=== PATIENT | male | born 1945 | race Caucasian/White ===

== ENCOUNTER 2023-03-16 18:30 | Inpatient (IN) | payer MEDICARE, BC ==
[~2023-03-16] VITALS: Ht 175.3 cm; Wt 54.5 kg
[2023-03-16 18:49] VITALS: O2SAT 93
[2023-03-16 19:36] LABS: BASOPHILS # (AUTO) 0.1 K/uL (0.0-0.2); BASOPHILS % (AUTO) 0.7 % (0.0-2.0); EOSINOPHILS # (AUTO) 0.4 K/uL (0.0-0.7); EOSINOPHILS % (AUTO) 4.5 % (0.0-6.0); HEMATOCRIT 43 % (39-51); HEMOGLOBIN 14.1 g/dL (13.5-17.5); LYMPHOCYTES # (AUTO) 1.1 K/uL (0.8-4.8); LYMPHOCYTES % (AUTO) 13.2 % (20.0-44.0); MEAN CORPUSCULAR HEMOGLOBIN 29 PG (26.0-33.0); MEAN CORPUSCULAR HGB CONC 33 g/dl (31.0-36.0); MEAN CORPUSCULAR VOLUME 89 fL (80-96); MONOCYTES # (AUTO) 0.6 K/uL (0.1-1.30); MONOCYTES % (AUTO) 7.5 % (2.0-12.0); NEUTROPHILS % (AUTO) 74.1 % (43.0-81.0); PLATELET COUNT (AUTO) 190 K/uL (150-450); RED BLOOD CELL COUNT(AUTO) 4.89 MIL/uL (4.5-6.0); RED CELL DISTRIBUTION WIDTH 14.4 % (11.5-15.0); WHITE BLOOD COUNT (AUTO) 8.1 K/uL (4.3-11.0)
[2023-03-16] MEDS ORDERED: DOCU250C14 PO (19:36)
[2023-03-16] MEDS ORDERED: BENZ0.5T43 PO (19:36)
[2023-03-16] MEDS ORDERED: EZET10TA16 PO (19:36)
[2023-03-16] MEDS ORDERED: ACET-2605 PO (19:36)
[2023-03-16] MEDS ORDERED: THIA100T74 PO (19:36)
[2023-03-16] MEDS ORDERED: QUET25TA PO (19:36)
[2023-03-16] MEDS ORDERED: MAGN400O6 PO (19:36)
[2023-03-16] MEDS ORDERED: OXCA150T5 PO (19:36)
[2023-03-16] MEDS ORDERED: ATOR40TA PO (19:36)
[2023-03-16] MEDS ORDERED: APIX5TAB PO (19:36)
[2023-03-16] MEDS ORDERED: NA P133E RC (19:36)
[2023-03-16] MEDS ORDERED: FOLI0.8T3 PO (19:36)
[2023-03-16] MEDS ORDERED: ZOLP5TAB2 PO (19:36)
[2023-03-16] MEDS ORDERED: ACET-868 PO (19:36)
[2023-03-16] MEDS ORDERED: FLEC50TA2 PO (19:36)
[2023-03-16 19:57] LABS: SERUM AMMONIA 15 umol/L (11-32)
[2023-03-16 20:05] LABS: AMPHETAMINE, URINE NEGATIVE (NEGATIVE); BARBITURATE, URINE NEGATIVE (NEGATIVE); BENZODIAZEPINE, URINE NEGATIVE (NEGATIVE); CANNABINOID, URINE NEGATIVE (NEGATIVE); COCCAINE, URINE NEGATIVE (NEGATIVE); OPIATE, URINE NEGATIVE (NEGATIVE); PHENCYCLIDINE SCREEN,URINE NEGATIVE (NEGATIVE)
[2023-03-16 20:07] LABS: INR 1.14 (0.91-1.10); PARTIAL THROMBOPLASTIN TIME 39.9 SEC (24.3-34.3)
[2023-03-16 20:08] LABS: APPEARANCE,URINE SLIGHTLY CLOUDY (CLEAR); BILIRUBIN,URINE 1+ (NEGATIVE); BLOOD, URINE 3+ Ery/uL (NEGATIVE); COLOR,URINE YELLOW (YELLOW); KETONES,URINE TRACE mg/dL (NEGATIVE); LEUKOCYTE ESTERASE ,URINE 2+ (NEGATIVE); NITRITE, URINE NEGATIVE (NEGATIVE); PROTEIN,URINE 1+ mg/dl (NEGATIVE); UGLUCOSE NEGATIVE (NEGATIVE)
[2023-03-16 20:12] LABS: ADD URINE CULTURE YES; BACTERIA,URINE 3+ /HPF (None Seen); RBC,URINE 51-80 /HPF (0-2); SQUAMOUS EPITHELIAL CELL,UR 0-2 /HPF (None Seen); TRIPLE PHOSPHATE CRYSTAL,UR Few /HPF (None Seen); WBC,URINE 21-50 /HPF (0-3)
[2023-03-16 20:17] LABS: MAGNESIUM 2.5 mg/dL (1.8-2.4)
[2023-03-16] MEDS ORDERED: CEFTRIAXONE 1GM BAG (ER ONLY) 1 GM/50 ML PIGGYBACK IV ONE (20:30)
[2023-03-16 20:33] LABS: THYROID STIMULATING HORMONE 1.075 uIU/mL (0.358-3.74)
[2023-03-16] MEDS ORDERED: CEFTRIAXONE 1GM BAG (ER ONLY) 50 ML IV ONE (21:04)
[2023-03-16 21:10] LABS: ANISOCYTOSIS 1+; EOSINOPHILS % (MANUAL) 2 % (0-4); LYMPHOCYTES % (MANUAL) 15 % (16-48); MONOCYTES % (MANUAL) 9 % (0-11.0); NEUTROPHILS % (MANUAL) 73 (42-76); PLATELET ESTIMATE ADEQUATE; REACTIVE LYMPHOCYTES 1 % (0-0)
[2023-03-16 21:11] LABS: ALANINE AMINOTRANSFERASE 30 U/L (12-78); ALBUMIN 3.2 g/dL (3.4-5.0); ALCOHOL, BLOOD < 3 mg/dL (0-10); ALKALINE PHOSPHATASE 89 U/L (46-116); ASPARTATE AMINOTRANSFERASE 28 U/L (15-37); BILIRUBIN,DIRECT 0.1 mg/dL (0.0-0.2); BILIRUBIN,TOTAL 0.7 mg/dL (0.2-1.0); CALCIUM, SERUM 9.4 mg/dL (8.5-10.1); CARBON DIOXIDE 27 mmol/L (21-32); CHLORIDE 112 mmol/L (98-107); CREATININE 0.9 mg/dL (0.6-1.3); GLUCOSE 111 mg/dL (74-106); POTASSIUM 4.2 mmol/L (3.5-5.1); SODIUM SERUM 150 mmol/L (136-145); TOTAL PROTEIN, SERUM 7.1 g/dL (6.4-8.2); UREA NITROGEN, BLOOD 38 mg/dL (7-18)
[2023-03-16 21:12] LABS: ACETAMINOPHEN 0 ug/ml (10-30); SALICYLATE < 0.2 mg/dL (2.8-20.0)
[2023-03-16] MEDS ORDERED: IV NS 0.9% 1,000 ML IV SCH (21:30)
[2023-03-16] MEDS ORDERED: ACETAMINOPHEN 325 MG TABLET PO PRN (21:30)
[2023-03-16] MEDS ORDERED: MORPHINE SULFATE INJ 2 MG/ML DISP.SYRIN IV PRN (21:30)
[2023-03-16] MEDS ORDERED: ONDANSETRON HCL/PF 4 MG/2 ML VIAL IVP PRN (21:30)
[2023-03-16] MEDS: QUETIAPINE FUMARATE 25 MG TABLET PO SCH (23:44)
[2023-03-16] MEDS: ATORVASTATIN 40 MG TABLET PO SCH (23:44)
[2023-03-17] MEDS: IV D5/0.45 NACL 1,000 ML IV SCH ×2 (00:09→12:36)
[2023-03-17 06:04] LABS: BASOPHILS % (AUTO) 0.6 % (0.0-2.0); EOSINOPHILS # (AUTO) 0.5 K/uL (0.0-0.7); EOSINOPHILS % (AUTO) 7.2 % (0.0-6.0); HEMATOCRIT 44 % (39-51); HEMOGLOBIN 13.7 g/dL (13.5-17.5); LYMPHOCYTES # (AUTO) 1.8 K/uL (0.8-4.8); LYMPHOCYTES % (AUTO) 25.4 % (20.0-44.0); MEAN CORPUSCULAR HEMOGLOBIN 29 PG (26.0-33.0); MEAN CORPUSCULAR HGB CONC 31 g/dl (31.0-36.0); MEAN CORPUSCULAR VOLUME 92 fL (80-96); MONOCYTES # (AUTO) 0.8 K/uL (0.1-1.30); MONOCYTES % (AUTO) 11.3 % (2.0-12.0); NEUTROPHILS # (AUTO) 3.9 K/uL (1.8-8.9); NEUTROPHILS % (AUTO) 55.5 % (43.0-81.0); PLATELET COUNT (AUTO) 175 K/uL (150-450); RED BLOOD CELL COUNT(AUTO) 4.72 MIL/uL (4.5-6.0); RED CELL DISTRIBUTION WIDTH 15.3 % (11.5-15.0)
[2023-03-17 06:18] LABS: ALANINE AMINOTRANSFERASE 26 U/L (12-78); ALBUMIN 2.4 g/dL (3.4-5.0); ALKALINE PHOSPHATASE 81 U/L (46-116); ASPARTATE AMINOTRANSFERASE 26 U/L (15-37); BILIRUBIN,TOTAL 0.6 mg/dL (0.2-1.0); CALCIUM, SERUM 9.1 mg/dL (8.5-10.1); CARBON DIOXIDE 23 mmol/L (21-32); CHLORIDE 113 mmol/L (98-107); CREATININE 0.8 mg/dL (0.6-1.3); GLUCOSE 115 mg/dL (74-106); MAGNESIUM 2.9 mg/dL (1.8-2.4); PHOSPHORUS 3.1 mg/dL (2.5-4.9); POTASSIUM 4.1 mmol/L (3.5-5.1); SODIUM SERUM 144 mmol/L (136-145); TOTAL PROTEIN, SERUM 6.6 g/dL (6.4-8.2); UREA NITROGEN, BLOOD 38 mg/dL (7-18)
[2023-03-17 08:00] VITALS: BP 139/71; TEMP 97.4; O2SAT 99
[2023-03-17] MEDS ORDERED: HEPARIN SODIUM, PORCINE 5000 UNITS/1 ML VIAL SQ SCH (09:00)
[2023-03-17] MEDS: FLECAINIDE ACETATE (100 MG) 100 MG TABLET PO SCH ×2 (09:00→21:00)
[2023-03-17] MEDS: EZETIMIBE 10 MG TABLET PO SCH (09:00)
[2023-03-17] MEDS: THIAMINE HCL 100 MG TABLET PO SCH (09:00)
[2023-03-17] MEDS ORDERED: APIXABAN 5 MG TABLET PO SCH (09:00)
[2023-03-17] MEDS: DOCUSATE SODIUM 100 MG CAPSULE PO SCH ×2 (09:00→16:15)
[2023-03-17] MEDS: POLYETHYLENE GLYCOL 3350 17 GM POWD.PACK PO SCH (09:00)
[2023-03-17] MEDS: BENZTROPINE MESYLATE (1 MG) 1 MG TABLET PO SCH ×2 (09:00→21:00)
[2023-03-17] MEDS: OXCARBAZEPINE 150 MG TABLET PO SCH ×2 (09:00→21:00)
[2023-03-17 12:00] VITALS: BP 116/95; TEMP 97.7; O2SAT 98
[2023-03-17] MEDS: HEPARIN SODIUM, PORCINE 5000 UNITS/1 ML VIAL SQ SCH ×2 (12:09→21:48)
[2023-03-17 16:00] VITALS: BP 135/68; TEMP 97.9; O2SAT 99
[2023-03-17 20:00] VITALS: BP 143/79; TEMP 97.7; O2SAT 98
[2023-03-17] MEDS: ATORVASTATIN 40 MG TABLET PO SCH (22:00)
[2023-03-17] MEDS: QUETIAPINE FUMARATE 25 MG TABLET PO SCH (22:00)
[2023-03-17] MEDS ORDERED: CEFTRIAXONE 1 G VIAL ONE (22:01)
[2023-03-17] MEDS: CEFTRIAXONE 1 G in IV D5W 50 ML IV SCH (22:09)
[2023-03-18] VITALS: BP 128/84; TEMP 97.6; O2SAT 97
[2023-03-18 04:00] VITALS: BP 121/65; TEMP 97.7; O2SAT 98
[2023-03-18 07:30] VITALS: BP 138/78; TEMP 97.7; O2SAT 100
[2023-03-18] MEDS: BENZTROPINE MESYLATE (1 MG) 1 MG TABLET PO SCH ×2 (08:04→21:00)
[2023-03-18] MEDS: DOCUSATE SODIUM 100 MG CAPSULE PO SCH ×2 (08:04→17:00)
[2023-03-18] MEDS: POLYETHYLENE GLYCOL 3350 17 GM POWD.PACK PO SCH (08:04)
[2023-03-18] MEDS: THIAMINE HCL 100 MG TABLET PO SCH (08:04)
[2023-03-18] MEDS: FLECAINIDE ACETATE (100 MG) 100 MG TABLET PO SCH ×2 (08:04→21:00)
[2023-03-18] MEDS: OXCARBAZEPINE 150 MG TABLET PO SCH ×2 (08:04→21:00)
[2023-03-18] MEDS: EZETIMIBE 10 MG TABLET PO SCH (08:04)
[2023-03-18] MEDS: IV D5W 1,000 ML IV PRN (08:12)
[2023-03-18 08:28] LABS: BASOPHILS % (AUTO) 0.8 % (0.0-2.0); EOSINOPHILS # (AUTO) 0.4 K/uL (0.0-0.7); EOSINOPHILS % (AUTO) 6.4 % (0.0-6.0); HEMATOCRIT 44 % (39-51); HEMOGLOBIN 14.5 g/dL (13.5-17.5); LYMPHOCYTES % (AUTO) 17.2 % (20.0-44.0); MEAN CORPUSCULAR HEMOGLOBIN 29 PG (26.0-33.0); MEAN CORPUSCULAR HGB CONC 33 g/dl (31.0-36.0); MEAN CORPUSCULAR VOLUME 89 fL (80-96); MONOCYTES # (AUTO) 0.6 K/uL (0.1-1.30); NEUTROPHILS # (AUTO) 3.9 K/uL (1.8-8.9); NEUTROPHILS % (AUTO) 65.6 % (43.0-81.0); PLATELET COUNT (AUTO) 189 K/uL (150-450); RED BLOOD CELL COUNT(AUTO) 4.99 MIL/uL (4.5-6.0); RED CELL DISTRIBUTION WIDTH 14.1 % (11.5-15.0); WHITE BLOOD COUNT (AUTO) 5.9 K/uL (4.3-11.0)
[2023-03-18 09:01] LABS: ALANINE AMINOTRANSFERASE 31 U/L (12-78); ALBUMIN 3.1 g/dL (3.4-5.0); ALKALINE PHOSPHATASE 89 U/L (46-116); ASPARTATE AMINOTRANSFERASE 24 U/L (15-37); BILIRUBIN,TOTAL 0.5 mg/dL (0.2-1.0); CALCIUM, SERUM 9.2 mg/dL (8.5-10.1); CARBON DIOXIDE 29 mmol/L (21-32); CHLORIDE 111 mmol/L (98-107); CREATININE 0.9 mg/dL (0.6-1.3); GLUCOSE 110 mg/dL (74-106); MAGNESIUM 2.1 mg/dL (1.8-2.4); POTASSIUM 4.4 mmol/L (3.5-5.1); SODIUM SERUM 148 mmol/L (136-145); UREA NITROGEN, BLOOD 27 mg/dL (7-18)
[2023-03-18] MEDS: HEPARIN SODIUM, PORCINE 5000 UNITS/1 ML VIAL SQ SCH ×2 (09:11→21:58)
[2023-03-18 16:00] VITALS: BP 135/83; TEMP 97.9; O2SAT 96
[2023-03-18] MEDS: CEFTRIAXONE 1 G in IV D5W 50 ML IV SCH (20:35)
[2023-03-18] MEDS: QUETIAPINE FUMARATE 25 MG TABLET PO SCH (22:00)
[2023-03-18] MEDS: ATORVASTATIN 40 MG TABLET PO SCH (22:00)
[2023-03-19 00:40] VITALS: BP 124/106; TEMP 97.7; O2SAT 100
[2023-03-19] MEDS: IV D5W 1,000 ML IV PRN (03:50)
[2023-03-19 07:02] LABS: BASOPHILS % (AUTO) 0.5 % (0.0-2.0); EOSINOPHILS # (AUTO) 0.3 K/uL (0.0-0.7); EOSINOPHILS % (AUTO) 6.2 % (0.0-6.0); HEMATOCRIT 43 % (39-51); HEMOGLOBIN 14.1 g/dL (13.5-17.5); LYMPHOCYTES # (AUTO) 1.2 K/uL (0.8-4.8); MEAN CORPUSCULAR HEMOGLOBIN 29 PG (26.0-33.0); MEAN CORPUSCULAR HGB CONC 33 g/dl (31.0-36.0); MEAN CORPUSCULAR VOLUME 88 fL (80-96); MONOCYTES # (AUTO) 0.5 K/uL (0.1-1.30); MONOCYTES % (AUTO) 9.4 % (2.0-12.0); NEUTROPHILS # (AUTO) 3.2 K/uL (1.8-8.9); NEUTROPHILS % (AUTO) 61.9 % (43.0-81.0); PLATELET COUNT (AUTO) 192 K/uL (150-450); RED BLOOD CELL COUNT(AUTO) 4.88 MIL/uL (4.5-6.0); RED CELL DISTRIBUTION WIDTH 13.7 % (11.5-15.0); WHITE BLOOD COUNT (AUTO) 5.2 K/uL (4.3-11.0)
[2023-03-19 07:09] LABS: MAGNESIUM 2.2 mg/dL (1.8-2.4); PHOSPHORUS 3.1 mg/dL (2.5-4.9)
[2023-03-19 07:30] VITALS: BP 117/86; TEMP 98.2; O2SAT 100
[2023-03-19] MEDS: BENZTROPINE MESYLATE (1 MG) 1 MG TABLET PO SCH ×2 (09:29→22:08)
[2023-03-19] MEDS: DOCUSATE SODIUM 100 MG CAPSULE PO SCH ×2 (09:29→16:58)
[2023-03-19] MEDS: OXCARBAZEPINE 150 MG TABLET PO SCH ×2 (09:29→22:09)
[2023-03-19] MEDS: EZETIMIBE 10 MG TABLET PO SCH (09:29)
[2023-03-19] MEDS: HEPARIN SODIUM, PORCINE 5000 UNITS/1 ML VIAL SQ SCH (09:29)
[2023-03-19] MEDS: THIAMINE HCL 100 MG TABLET PO SCH (09:29)
[2023-03-19] MEDS: POLYETHYLENE GLYCOL 3350 17 GM POWD.PACK PO SCH (09:30)
[2023-03-19] MEDS: FLECAINIDE ACETATE (100 MG) 100 MG TABLET PO SCH ×2 (09:32→22:09)
[2023-03-19] MEDS: Z GUARD REMEDY 4 OZ OINT TP PRN ×2 (10:32→10:33)
[2023-03-19] MEDS: DIVALPROEX SODIUM 125 MG CAP.SPRINK PO SCH ×3 (10:32→16:58)
[2023-03-19] MEDS: Z GUARD REMEDY 4 OZ OINT TP SCH (10:34)
[2023-03-19 16:00] VITALS: BP 113/73; TEMP 98.1; O2SAT 100
[2023-03-19] MEDS: APIXABAN 5 MG TABLET PO SCH (17:01)
[2023-03-19 20:00] VITALS: BP 114/69; TEMP 98.6; O2SAT 97
[2023-03-19] MEDS: CEFTRIAXONE 1 G in IV D5W 50 ML IV SCH (20:41)
[2023-03-19] MEDS: QUETIAPINE FUMARATE 25 MG TABLET PO SCH (22:05)
[2023-03-19] MEDS: ATORVASTATIN 40 MG TABLET PO SCH (22:09)
[2023-03-20] MEDS: IV D5W 1,000 ML IV PRN (05:06)
[2023-03-20 07:00] VITALS: BP 104/67; TEMP 97.7; O2SAT 96
[2023-03-20] MEDS: ENSURE ENLIVE CHOC 237 ML CAN PO SCH ×2 (08:18→17:09)
[2023-03-20] MEDS: THIAMINE HCL 100 MG TABLET PO SCH (09:49)
[2023-03-20] MEDS: FLECAINIDE ACETATE (100 MG) 100 MG TABLET PO SCH ×2 (09:49→20:24)
[2023-03-20] MEDS: EZETIMIBE 10 MG TABLET PO SCH (09:49)
[2023-03-20] MEDS: DOCUSATE SODIUM 100 MG CAPSULE PO SCH ×2 (09:49→17:09)
[2023-03-20] MEDS: BENZTROPINE MESYLATE (1 MG) 1 MG TABLET PO SCH ×2 (09:49→20:24)
[2023-03-20] MEDS: POLYETHYLENE GLYCOL 3350 17 GM POWD.PACK PO SCH (09:49)
[2023-03-20] MEDS: OXCARBAZEPINE 150 MG TABLET PO SCH ×2 (09:50→20:52)
[2023-03-20] MEDS: DIVALPROEX SODIUM 125 MG CAP.SPRINK PO SCH ×4 (09:50→17:09)
[2023-03-20] MEDS: APIXABAN 5 MG TABLET PO SCH ×2 (09:51→17:10)
[2023-03-20] MEDS: Z GUARD REMEDY 4 OZ OINT TP SCH (10:08)
[2023-03-20] MEDS ORDERED: CEFT1FRO2 IV (12:40)
[2023-03-20 16:29] VITALS: BP 136/72; TEMP 97.6; O2SAT 97
[2023-03-20 20:00] VITALS: BP 99/83; TEMP 97.9; O2SAT 100
[2023-03-20] MEDS: CEFTRIAXONE 1 G in IV D5W 50 ML IV SCH (20:09)
[2023-03-20] MEDS: ATORVASTATIN 40 MG TABLET PO SCH (21:29)
[2023-03-20] MEDS: QUETIAPINE FUMARATE 25 MG TABLET PO SCH (21:29)
[2023-03-21] MEDS: IV D5W 1,000 ML IV PRN (06:14)
[2023-03-21 08:00] VITALS: BP 113/76; TEMP 98.2; O2SAT 94
[2023-03-21] MEDS: Z GUARD REMEDY 4 OZ OINT TP SCH (09:00)
[2023-03-21] MEDS: ENSURE ENLIVE CHOC 237 ML CAN PO SCH ×2 (09:29→16:29)
[2023-03-21] MEDS: DOCUSATE SODIUM 100 MG CAPSULE PO SCH ×2 (09:29→16:29)
[2023-03-21] MEDS: DIVALPROEX SODIUM 125 MG CAP.SPRINK PO SCH ×3 (09:30→16:29)
[2023-03-21] MEDS: FLECAINIDE ACETATE (100 MG) 100 MG TABLET PO SCH ×2 (09:30→20:37)
[2023-03-21] MEDS: EZETIMIBE 10 MG TABLET PO SCH (09:30)
[2023-03-21] MEDS: BENZTROPINE MESYLATE (1 MG) 1 MG TABLET PO SCH ×2 (09:30→20:37)
[2023-03-21] MEDS: OXCARBAZEPINE 150 MG TABLET PO SCH ×2 (09:30→20:37)
[2023-03-21] MEDS: THIAMINE HCL 100 MG TABLET PO SCH (09:31)
[2023-03-21] MEDS: POLYETHYLENE GLYCOL 3350 17 GM POWD.PACK PO SCH (09:31)
[2023-03-21] MEDS: APIXABAN 5 MG TABLET PO SCH ×2 (09:35→16:30)
[2023-03-21] MEDS: Z GUARD REMEDY 4 OZ OINT TP PRN ×2 (09:57→10:03)
[2023-03-21 13:58] LABS: CALCIUM, SERUM 8.6 mg/dL (8.5-10.1); CARBON DIOXIDE 23 mmol/L (21-32); CHLORIDE 102 mmol/L (98-107); CREATININE 0.8 mg/dL (0.6-1.3); GLUCOSE 117 mg/dL (74-106); POTASSIUM 3.4 mmol/L (3.5-5.1); SODIUM SERUM 135 mmol/L (136-145); UREA NITROGEN, BLOOD 21 mg/dL (7-18)
[2023-03-21] MEDS ORDERED: POTASSIUM CHLORIDE 20 MEQ TAB.PRT.SR PO ONE (15:30)
[2023-03-21 16:00] VITALS: BP 106/62; TEMP 98.1; O2SAT 96
[2023-03-21 20:00] VITALS: BP 118/84; TEMP 98.1; O2SAT 100
[2023-03-21] MEDS: CEFTRIAXONE 1 G in IV D5W 50 ML IV SCH (21:14)
[2023-03-21] MEDS: QUETIAPINE FUMARATE 25 MG TABLET PO SCH (21:28)
[2023-03-21] MEDS: ATORVASTATIN 40 MG TABLET PO SCH (21:28)
[2023-03-22 06:57] LABS: BASOPHILS % (AUTO) 0.1 % (0.0-2.0); EOSINOPHILS # (AUTO) 0.4 K/uL (0.0-0.7); EOSINOPHILS % (AUTO) 4.5 % (0.0-6.0); HEMATOCRIT 43 % (39-51); HEMOGLOBIN 14.4 g/dL (13.5-17.5); LYMPHOCYTES # (AUTO) 1.1 K/uL (0.8-4.8); LYMPHOCYTES % (AUTO) 13.4 % (20.0-44.0); MEAN CORPUSCULAR HEMOGLOBIN 29 PG (26.0-33.0); MEAN CORPUSCULAR HGB CONC 33 g/dl (31.0-36.0); MEAN CORPUSCULAR VOLUME 87 fL (80-96); MONOCYTES # (AUTO) 0.7 K/uL (0.1-1.30); MONOCYTES % (AUTO) 8.5 % (2.0-12.0); NEUTROPHILS # (AUTO) 5.8 K/uL (1.8-8.9); NEUTROPHILS % (AUTO) 73.5 % (43.0-81.0); PLATELET COUNT (AUTO) 192 K/uL (150-450); RED BLOOD CELL COUNT(AUTO) 4.96 MIL/uL (4.5-6.0); RED CELL DISTRIBUTION WIDTH 13.6 % (11.5-15.0); WHITE BLOOD COUNT (AUTO) 7.9 K/uL (4.3-11.0)
[2023-03-22 07:12] LABS: ALANINE AMINOTRANSFERASE 30 U/L (12-78); ALBUMIN 2.9 g/dL (3.4-5.0); ALKALINE PHOSPHATASE 88 U/L (46-116); ASPARTATE AMINOTRANSFERASE 24 U/L (15-37); BILIRUBIN,TOTAL 0.5 mg/dL (0.2-1.0); CALCIUM, SERUM 9.2 mg/dL (8.5-10.1); CARBON DIOXIDE 25 mmol/L (21-32); CHLORIDE 105 mmol/L (98-107); CREATININE 0.8 mg/dL (0.6-1.3); GLUCOSE 106 mg/dL (74-106); MAGNESIUM 2.2 mg/dL (1.8-2.4); PHOSPHORUS 2.4 mg/dL (2.5-4.9); POTASSIUM 3.9 mmol/L (3.5-5.1); SODIUM SERUM 138 mmol/L (136-145); TOTAL PROTEIN, SERUM 6.6 g/dL (6.4-8.2); UREA NITROGEN, BLOOD 14 mg/dL (7-18)
[2023-03-22] MEDS: IV D5W 1,000 ML IV PRN (07:12)
[2023-03-22] MEDS: ENSURE ENLIVE CHOC 237 ML CAN PO SCH (07:46)
[2023-03-22 08:24] VITALS: BP 118/92; TEMP 97.9; O2SAT 100
[2023-03-22] MEDS: FLECAINIDE ACETATE (100 MG) 100 MG TABLET PO SCH (08:54)
[2023-03-22] MEDS: THIAMINE HCL 100 MG TABLET PO SCH (08:54)
[2023-03-22] MEDS: DOCUSATE SODIUM 100 MG CAPSULE PO SCH (08:54)
[2023-03-22] MEDS: APIXABAN 5 MG TABLET PO SCH (08:55)
[2023-03-22] MEDS: BENZTROPINE MESYLATE (1 MG) 1 MG TABLET PO SCH (08:55)
[2023-03-22] MEDS: EZETIMIBE 10 MG TABLET PO SCH (08:55)
[2023-03-22] MEDS: DIVALPROEX SODIUM 125 MG CAP.SPRINK PO SCH ×2 (08:55→14:07)
[2023-03-22] MEDS: OXCARBAZEPINE 150 MG TABLET PO SCH (08:55)
[2023-03-22] MEDS: POLYETHYLENE GLYCOL 3350 17 GM POWD.PACK PO SCH (08:56)
[2023-03-22] MEDS: Z GUARD REMEDY 4 OZ OINT TP SCH (08:56)
== END 2023-03-22 14:30 | DRG 640 ==
LOC: ER 18:44 → MED 21:30 → TELE 03-17 00:15 → MED 03-19 14:46
PROVIDERS: ADMIT Internal Medicine; ATTEND Nurse Practitioner Acute Care
DX: R62.7 Adult failure to thrive (principal); E43 Unspecified severe protein-calorie malnutrition; G92.8 Other toxic encephalopathy; D68.59 Other primary thrombophilia; N39.0 Urinary tract infection, site not specified; R64 Cachexia; F03.92 Unspecified dementia, unspecified severity, with psychotic disturbance; F03.93 Unspecified dementia, unspecified severity, with mood disturbance; F03.94 Unspecified dementia, unspecified severity, with anxiety; E87.0 Hyperosmolality and hypernatremia; N17.9 Acute kidney failure, unspecified; Z68.1 Body mass index [BMI] 19.9 or less, adult; F02.84 Dementia in other diseases classified elsewhere, unspecified severity, with anxiety; F02.818 Dementia in other diseases classified elsewhere, unspecified severity, with other behavioral disturbance; I48.20 Chronic atrial fibrillation, unspecified; E86.0 Dehydration; Z20.822 Contact with and (suspected) exposure to COVID-19; Z66 Do not resuscitate; Z86.73 Personal history of transient ischemic attack (TIA), and cerebral infarction without residual deficits; F32.A Depression, unspecified; F41.9 Anxiety disorder, unspecified; Z79.01 Long term (current) use of anticoagulants; Z79.899 Other long term (current) drug therapy; B96.89 Other specified bacterial agents as the cause of diseases classified elsewhere; E88.09 Other disorders of plasma-protein metabolism, not elsewhere classified; I48.91 Unspecified atrial fibrillation; Z95.0 Presence of cardiac pacemaker; G31.83 Neurocognitive disorder with Lewy bodies; Z74.09 Other reduced mobility; E86.9 Volume depletion, unspecified; M89.8X9 Other specified disorders of bone, unspecified site; I70.0 Atherosclerosis of aorta; G25.3 Myoclonus; E83.41 Hypermagnesemia; E78.5 Hyperlipidemia, unspecified
CPT/HCPCS: 36415; 70450-TC; 71045-TC; 80048-TC; 80053-TC; 80076-TC; 81001; 82140-TC; 83735-TC; 84100-TC; 84439-TC; 84443-TC; 84484-TC; 85025-TC; 85730-TC; 87081-TC; 87086-TC; 92526; 92611-TC; 95819-TC; A4223; A6403; G0378; G0480; J0696; J1644; J3490; J7060; J7070